=== PATIENT | female | born 1995 | race Caucasian/White ===

== ENCOUNTER 2016-04-17 18:30 | Emergency (ER) | payer OTHER ==
[2016-04-17 18:43] VITALS: TEMP 98.8
--- NOTE | 2016-04-17 19:29 | EDPHY ---
H & P Stated Complaint: hit head 6 days ago. Having blurry vision, headaches, nausea Time Seen by Provider: 04/17/16 19:28 HPI/ROS: CHIEF COMPLAINT: Nausea, remote history of head injury HISTORY OF PRESENT ILLNESS: The patient presents to the ED with complaints of nausea and a slight headache. The patient did have minor head trauma approximately 6 days ago. She reportedly was struck with a plastic plate while at work. The patient did feel her symptoms were improving but she had recurrence of her headache and some vomiting today. The patient denies any focal numbness or weakness. She does complain of very mild visual changes. Patient reports to me she has had a history of concussion times 10 in the past. Additionally she had workup of a headache earlier this year with a negative CT and MRI. The patient has been using ibuprofen for her symptoms. She denies additional traumatic complaints. REVIEW OF SYSTEMS: A comprehensive 10 point review of systems is otherwise negative aside from elements mentioned in the history of present illness. 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 - Social History Smoking Status: Never smoked - Physical Exam Exam: General Appearance: Alert, no distress Head: Atraumatic Eyes: Pupils equal, round, reactive ENT, Mouth: No hemotympanum, no oral trauma Neck: Nontender, trachea midline Respiratory: No chest wall tender, subcutaneous air, lungs clear bilaterally Cardiovascular: Regular rate and rhythm Abdomen: Abdomen is soft and nontender, pelvis stable Skin: No lacerations, No abrasion Back: No midline T/L/S pain Extremities: Nontender, full range of motion Neurological: A&Ox3, normal motor function, normal sensory exam Constitutional: Initial Vital Signs Temperature (C) 37.1 C 04/17/16 18:39 Heart Rate 86 04/17/16 18:39 Respiratory Rate 16 04/17/16 18:39 Blood Pressure 110/74 04/17/16 18:39 O2 Sat (%) 97 04/17/16 18:39 O2 Delivery Mode Room Air Allergies/Adverse Reactions: No Known Allergies Allergy (Unverified 05/27/13 11:31) Home Medications: Medication Instructions Recorded Vitamin D 06/05/15 Ondansetron Odt [Zofran Odt] 4 mg PO Q4PRN PRN #20 tab 04/17/16 Medical Decision Making ED Course/Re-evaluation: The patient is a GCS is 15, she is neurologic intact. There is no evidence of a skull fracture or scalp hematoma. The patient denies any acute abdominal pain or neck pain. I do not believe that she requires a CT scan of her brain to exclude hemorrhage or fracture. The patient is having symptoms of a mild concussion following with sounds to be mild trauma earlier in the week. The patient will be discharged home with our customary concussion aftercare instructions. She is given a prescription for Zofran for nausea. She is encouraged to continue Tylenol and ibuprofen for pain. She will be referred to our concussion center for follow up care. Departure - Departure Disposition: Home, Routine, Self-Care Clinical Impression: Concussion Condition: Good Instructions: Concussion (ED) Additional Instructions: 1. Zofran as needed for nausea. 2. Tylenol and ibuprofen as needed for pain. 3. Please follow up with Dr. Balbina Blanco, our concussion specialist, for any unimproved symptoms. Referrals: Balbina Blanco MD [Medical Doctor] - As per Instructions
[2016-04-17 19:55] VITALS: BP 115/74; PULSE 75; RESP 18; O2SAT 96
== END 2016-04-17 19:55 | disposition home or self-care (01) ==
DX: S06.0X0A Concussion without loss of consciousness, initial encounter (principal); W22.8XXA Striking against or struck by other objects, initial encounter; Y92.69 Other specified industrial and construction area as the place of occurrence of the external cause; Y99.0 Civilian activity done for income or pay; Y93.89 Activity, other specified

== ENCOUNTER 2016-11-17 10:37 | Emergency (ER) | payer OTHER ==
--- NOTE | 2016-11-17 10:56 | CPEKG ---
Heart Rate: 76 RR Interval: 789 P-R Interval: 160 QRSD Interval: 80 QT Interval: 372 QTC Interval: 419 P [place]: 26 QRS [place]: 69 T Wave [place]: 21 EKG Severity - NORMAL ECG - EKG Impression: SINUS RHYTHM Electronically Signed By: Anabella Rand 17-Nov-2016 14:58:57
--- NOTE | 2016-11-17 11:05 | EDPHY ---
H & P Stated Complaint: Sharp bronchial pain with breathing x several days;no cough, no recent trave Time Seen by Provider: 11/17/16 10:48 HPI/ROS: CHIEF COMPLAINT: midsternal pleuritic pain HISTORY OF PRESENT ILLNESS: 21-year-old female history of pituitary tumor followed at [facility] complaining of 2 days of pleuritic lower midsternal pain, reproducible with palpation in the epigastrium, reproducible with inspiration. No radiation. No cough. No URI symptoms. No trauma. No syncope or near syncope. No nausea or vomiting. No malignancy. No immobilization. No trauma. No leg pain ,cramping or swelling. Patient works as an medical assistant dermatology at [employer], most recently worked out 4 days ago at which point she did not experience exertional chest pain or dyspnea beyond expected dyspnea while working out. PRIMARY CARE PROVIDER: [facility] REVIEW OF SYSTEMS: A ten point review of systems was performed and is negative with the exception of the items mentioned in the HPI PAST MEDICAL & SURGICAL HISTORY: Pituitary tumor SOCIAL HISTORY: Nonsmoker. No drug use. No cocaine use FAMILY HISTORY: No family history of premature coronary artery disease or coagulopathic disorder PHYSICAL EXAM (Prior to examination, patient consented to physical exam, hands were washed and my usual and customary physical exam procedures followed) 1) GENERAL: Well-developed, well-nourished, alert and oriented. Appears to be in no acute distress. 2) HEAD: Normocephalic, atraumatic 3) HEENT: Pupils equal, round, reactive to light bilaterally. Sclera anicteric. 4) NECK: Full range of motion, no meningeal signs. 5) LUNGS: Clear auscultation bilaterally, no wheezes, no rhonchi, no retractions. Tender to palpation lower sternum xiphoid process region 6) HEART: Regular rate and rhythm, no murmur, no heave, no gallop. 7) ABDOMEN: No guarding, tender to palpation cephalad portion of epigastrium negative McBurney's, negative Barclay's, negative Rovsing's, negative peritoneal sign, 8) MUSCULOSKELETAL: Moving all extremities, no focal areas of tenderness, no obvious trauma. No peripheral edema or discoloration. 9) BACK: No CVA tenderness. 10) SKIN: No rash, no petechiae. No rash no vesicles 11) Psychiatric: Patient is oriented X 3, there is no agitation. DIFFERENTIAL DIAGNOSIS: In no particular order, including but not limited to myocardial ischemia, pulmonary embolus, chest wall pain, pleural inflammation and pulmonary infectious causes. 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 pituitary tumor. insulin resistance - Social History Smoking Status: Never smoked Constitutional: Initial Vital Signs Temperature (C) 36.7 C 11/17/16 10:38 Heart Rate 75 11/17/16 10:38 Respiratory Rate 16 11/17/16 10:38 Blood Pressure 122/73 H 11/17/16 10:38 O2 Sat (%) 99 11/17/16 10:38 O2 Delivery Mode Room Air Allergies/Adverse Reactions: No Known Allergies Allergy (Verified 11/17/16 10:38) Home Medications: Medication Instructions Recorded Cabergoline [Dostinex (*)] 0.5 mg PO 11/17/16 metFORMIN HCL [Glucophage 500 mg 500 mg PO 11/17/16 (*)] Medical Decision Making - Diagnostics Imaging Results: Imaging Impressions Chest X-Ray 11/17/16 11:03 Impression: Poor inspiration. Otherwise negative. Images reviewed myself ED Course/Re-evaluation: 11:03 a.m.: Patient complaining of pleuritic chest pain as well as tenderness to palpation epigastrium. Patient has a moderate risk Wells score. . Will obtain D-dimer, other diagnostic studies and re-evaluated. 1:04 p.m.: Patient was re-evaluated with serial examinations. Discussed her EKG, chest x-ray, normal D-dimer which I think adequately excludes pulmonary embolus in this patient. She is also tender to palpation epigastrium with normal lipase, negative Barclay signed. I do not think that further imaging currently indicated. I discussed case with secondary supervising physician Dr. Rand in the ER. Plan will be discharge. Recommend ibuprofen for discomfort and follow up with primary care provider. - Data Points Laboratory Results: Laboratory Results 11/17/16 11:25 11/17/16 11:25 11/17/16 11/17/16 11/17/16 11:25 11:25 11:25 WBC RBC Hgb Hct MCV MCH MCHC RDW Plt Count MPV Neut % (Auto) Lymph % (Auto) [place] % (Auto) Eos % (Auto) Baso % (Auto) Nucleat RBC Rel Count Absolute Neuts (auto) Absolute Lymphs (auto) Absolute Monos (auto) Absolute Eos (auto) Absolute Basos (auto) Absolute Nucleated RBC Immature Gran % Immature Gran # D-Dimer < 0.27 ug/mLFEU ug/mLFEU (0.00-0.50) Sodium 139 mEq/L mEq/L (134-144) Potassium 3.9 mEq/L mEq/L (3.5-5.2) Chloride 102 mEq/L mEq/L (97-110) Carbon Dioxide 25 mEq/l mEq/l (22-31) Anion Gap 12 mEq/L mEq/L (8-16) BUN 9 mg/dL mg/dL (7-23) Creatinine 0.8 mg/dL mg/dL (0.6-1.0) Estimated GFR > 60 Glucose 112 mg/dL H mg/dL (70-100) Calcium 9.7 mg/dL mg/dL (8.5-10.4) Total Bilirubin 0.7 mg/dL mg/dL (0.1-1.4) Conjugated Bilirubin 0.2 mg/dL mg/dL (0.0-0.5) Unconjugated Bilirubin 0.5 mg/dL mg/dL (0.0-1.1) AST 30 IU/L IU/L (14-46) ALT 36 IU/L IU/L (9-52) Alkaline Phosphatase 42 IU/L IU/L (38-126) Total Protein 6.9 g/dL g/dL (6.3-8.2) Albumin 4.0 g/dL g/dL (3.5-5.0) Lipase 61.0 IU/L IU/L (23-300) Beta HCG, Qual NEGATIVE 11/17/16 11:25 WBC 8.03 10^3/uL 10^3/uL (3.80-9.50) RBC 5.27 10^6/uL 10^6/uL (4.18-5.33) Hgb 14.7 g/dL g/dL (12.6-16.3) Hct 44.9 % % (38.0-47.0) MCV 85.2 fL fL (81.5-99.8) MCH 27.9 pg pg (27.9-34.1) MCHC 32.7 g/dL g/dL (32.4-36.7) RDW 13.1 % % (11.5-15.2) Plt Count 296 10^3/uL 10^3/uL (150-400) MPV 10.1 fL fL (8.7-11.7) Neut % (Auto) 59.4 % % (39.3-74.2) Lymph % (Auto) 32.8 % % (15.0-45.0) Weston % (Auto) 5.2 % % (4.5-13.0) Eos % (Auto) 2.1 % % (0.6-7.6) Baso % (Auto) 0.4 % % (0.3-1.7) Nucleat RBC Rel Count 0.0 % % (0.0-0.2) Absolute Neuts (auto) 4.77 10^3/uL 10^3/uL (1.70-6.50) Absolute Lymphs (auto) 2.63 10^3/uL 10^3/uL (1.00-3.00) Absolute Monos (auto) 0.42 10^3/uL 10^3/uL (0.30-0.80) Absolute Eos (auto) 0.17 10^3/uL 10^3/uL (0.03-0.40) Absolute Basos (auto) 0.03 10^3/uL 10^3/uL (0.02-0.10) Absolute Nucleated RBC 0.00 10^3/uL 10^3/uL (0-0.01) Immature Gran % 0.1 % % (0.0-1.1) Immature Gran # 0.01 10^3/uL 10^3/uL (0.00-0.10) D-Dimer Sodium Potassium Chloride Carbon Dioxide Anion Gap BUN Creatinine Estimated GFR Glucose Calcium Total Bilirubin Conjugated Bilirubin Unconjugated Bilirubin AST ALT Alkaline Phosphatase Total Protein Albumin Lipase Beta HCG, Qual Medications Given: Discontinued Medications Ibuprofen (Motrin) 800 mg PO EDNOW ONE Stop: 11/17/16 12:33 Last Admin: 11/17/16 12:35 Dose: 800 mg Departure - Departure Disposition: Home, Routine, Self-Care Clinical Impression: Pleurisy Condition: Good Instructions: Pleurisy (ED) Additional Instructions: Return to the emergency department immediately if you develop new or worsening symptoms, if you develop back pain, dizziness or any other symptoms that concern you. Referrals: Follow-up, with your primary care provider in 2 days [Other] - As per Instructions
[2016-11-17 11:34] LABS: % IMMATURE GRANULYOCYTES 0.1 % (0.0-1.1); ABSOLUTE IMMATURE GRANULOCYTES 0.01 10^3/uL (0.00-0.10); ADD DIFF? NO; ADD MORPH? NO; ADD SCAN? NO; ATYPICAL LYMPHOCYTE FLAG 0 (0-99); FRAGMENT RBC FLAG 0 (0-99); HEMATOCRIT 44.9 % (38.0-47.0); HEMOGLOBIN 14.7 g/dL (12.6-16.3); LEFT SHIFT FLG 0 (0-99); LIPEMIA HEMOLYSIS FLAG 80 (0-99); MEAN CELL HEMOGLOBIN 27.9 pg (27.9-34.1); MEAN CELL HEMOGLOBIN CONCENTR. 32.7 g/dL (32.4-36.7); MEAN CELL VOLUME 85.2 fL (81.5-99.8); MEAN PLATELET VOLUME 10.1 fL (8.7-11.7); PLATELET CLUMPS FLAG 10 (0-99); PLATELET COUNT 296 10^3/uL (150-400); RED BLOOD CELL COUNT 5.27 10^6/uL (4.18-5.33); RED CELL DISTRIBUTION WIDTH 13.1 % (11.5-15.2)
[2016-11-17 11:59] LABS: ALANINE AMINOTRANSFERASE 36 IU/L (9-52); ALKALINE PHOSPHATASE 42 IU/L (38-126); ASPARTATE AMINOTRANSFERASE 30 IU/L (14-46); BILIRUBIN,TOTAL 0.7 mg/dL (0.1-1.4); BILIRUBIN-CONJUGATED 0.2 mg/dL (0.0-0.5); BILIRUBIN-UNCONJUGATED 0.5 mg/dL (0.0-1.1); CALCIUM 9.7 mg/dL (8.5-10.4); CARBON DIOXIDE 25 mEq/l (22-31); CHLORIDE 102 mEq/L (97-110); CREATININE 0.8 mg/dL (0.6-1.0); GLOMERULAR FILTRATION RATE > 60; GLUCOSE 112 mg/dL (70-100); SODIUM 139 mEq/L (134-144); TOTAL PROTEIN 6.9 g/dL (6.3-8.2)
[2016-11-17 12:11] LABS: ANION GAP 12 mEq/L (8-16); POTASSIUM 3.9 mEq/L (3.5-5.2)
[2016-11-17 12:23] VITALS: O2SAT 95
[2016-11-17] MEDS: IBUPROFEN 200 MG TAB PO ONE (12:35)
[2016-11-17 13:33] VITALS: BP 102/80; PULSE 88; RESP 18; TEMP 98.6
== END 2016-11-17 13:33 | disposition home or self-care (01) ==
DX: R09.1 Pleurisy (principal)

== ENCOUNTER 2016-11-18 07:35 | Emergency (ER) | payer OTHER ==
--- NOTE | 2016-11-18 07:47 | EDPHY ---
H & P Stated Complaint: Here yesterday for another c/o. Now states "I vomited blood" x 1 this am HPI/ROS: CHIEF COMPLAINT: Chest pain, abdominal pain, vomited blood HISTORY OF PRESENT ILLNESS: This patient is a 21 year old female arriving with her roommate complaining of worsening midepigastric abdominal pain and one episode of coffee-ground emesis about one hour prior to arrival. She was seen in this emergency department yesterday for lower midsternal pleuritic pain, and had a negative workup for pulmonary or cardiac causes at that time. Since then, her pain has gotten much worse. It is localized along the bottom of her ribcage bilaterally, primarily in middle, and more pronounced on the right than the left. She vomited one hour ago, and describes the emesis as brownish-black, "like coffee grounds". Her last oral intake was yesterday evening. She did receive 800mg Ibuprofen in the emergency department yesterday, and took an additional dose at home around 18: 00. She endorses an evening of more alcohol use than usual on Thursday. She denies fever, diarrhea, dysuria, or other associated symptoms. Of note, she has history of pituitary tumor diagnosed in May of this year. She is followed by [facility] for this. She takes a prolactin suppressant, and feels her symptoms are well controlled. She has not noted any vision changes or other changes since diagnosis. She states she is otherwise healthy. REVIEW OF SYSTEMS: A ten point review of systems was performed and is negative with the exception of the items mentioned in the HPI. - Personal History LMP (Females 10-55): 15-21 Days Ago Current Tetanus Diphtheria and Acellular Pertussis (TDAP): Yes - Medical/Surgical History PMH: 1. Pituitary tumor (Cabergoline) Diagnosed in May, by MRI and hormone levels 2. Insulin resistance (Metformin) 3. Concussions x 10 per patient 4. Left foot arch reconstructive surgery Hx Asthma: No Hx Chronic Respiratory Disease: No Hx Diabetes: No Hx Cardiac Disease: No Hx Renal Disease: No Hx Cirrhosis: No Hx Alcoholism: No Hx HIV/AIDS: No Hx Splenectomy or Spleen Trauma: No - Social History Smoking Status: Never smoked Alcohol Use: Occasionally Additional Social History: Roommate at bedside. 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 Recently graduated from [employer]. Lives in [place]. [facility] No tobacco use. Social alcohol use. - Physical Exam Exam: General Appearance: Alert. Vital signs reviewed. Eyes: Pupils equal and round, no conjunctival injection, no discharge. Anicteric. ENT, Mouth: Mucous membranes are moist, no oropharyngeal erythema or edema. Neck: No lymphadenopathy, supple. Respiratory: Lungs are clear to auscultation; no wheezes, rales, or rhonchi. Cardiovascular: Regular rate and rhythm; no murmur, rub, or gallop. Gastrointestinal: Midepigastric and right upper quadrant tenderness. No guarding. Abdomen is soft, no masses or organomegaly, bowel sounds normal. Skin: Warm and dry, no rashes on exposed skin, normal color. Back: Mild right CVA tenderness. Nontender to palpation over the thoracolumbar spine. Extremities: No lower extremity edema, no calf tenderness or swelling. Neurological: Alert and oriented. Moving all four extremities easily and equally. Psychiatric: Normal affect. Constitutional: Initial Vital Signs Temperature (C) 36.7 C 11/18/16 07:37 Heart Rate 78 11/18/16 07:37 Respiratory Rate 16 11/18/16 07:37 Blood Pressure 111/64 11/18/16 07:37 O2 Sat (%) 95 11/18/16 07:37 O2 Delivery Mode Room Air Allergies/Adverse Reactions: No Known Allergies Allergy (Verified 11/18/16 07:37) Home Medications: Medication Instructions Recorded Cabergoline [Dostinex (*)] 0.5 mg PO 11/17/16 metFORMIN HCL [Glucophage 500 mg 500 mg PO 11/17/16 (*)] Omeprazole [Prilosec 20 mg] 20 mg PO DAILY #14 capsule. 11/18/16 Ondansetron Odt [Zofran Odt 4 mg 4 mg PO Q4 PRN #6 tab 11/18/16 (RX)] Medical Decision Making ED Course/Re-evaluation: 21 year old female presents with worsening abdominal pain and one episode of brownish-black emesis. Physical exam reveals midepigastric and right upper quadrant abdominal tenderness. Plan for IV fluid, 4mg IV Zofran, 20mg IV Pepcid for symptom relief. Plan to repeat labs including CBC, BMP, liver, and lipase. Reviewed yesterday's work-up. Considering: ulcer disease, pancreatitis, cholecystitis among other possibilities. 8:33 Reassessed patient. She is feeling better follow administration of Pepcid and Zofran. Her abdomen is soft; mild midepigastric tenderness persists. 9:50 a.m.: She is feeling better. Abdomen remains soft, minimally tender in the midepigastrium. She has been given a GI cocktail. The plan is to discharge her home with instructions to take Prilosec for couple of weeks and also to try Maalox or Mylanta. She is being given a referral to a local primary care physician. In this situation, I think gastritis is most likely diagnosis. No hemodynamic instability to suggest ongoing blood loss. Labs indicate that gallbladder and pancreas are less likely to be etiology. Differential Diagnosis: Abdominal pain including but not limited to appendicitis, bowel obstruction, cholecystitis, pancreatitis, gastritis/peptic ulcer disease and urinary tract infection. - Data Points Laboratory Results: Laboratory Results 11/18/16 08:00 11/18/16 08:00 Medications Given: Discontinued Medications Al Hydroxide/Mg Hydroxide (Maalox Susp) 30 ml PO ONCE ONE Stop: 11/18/16 09:50 Last Admin: 11/18/16 09:59 Dose: 30 ml Hyoscyamine Sulfate (Levsin, Hyomax-Sl) 0.25 mg PO ONCE ONE Stop: 11/18/16 09:50 Last Admin: 11/18/16 09:59 Dose: 0.25 mg Sodium Chloride (Ns) 1,000 mls @ 0 mls/hr IV EDNOW ONE; Wide Open PRN Reason: Protocol Stop: 11/18/16 07:57 Last Admin: 11/18/16 08:13 Dose: 1,000 mls Famotidine/Sodium Chloride (Pepcid 20 Mg (Premix)) 50 mls @ 200 mls/hr IV EDNOW ONE Stop: 11/18/16 08:10 Last Admin: 11/18/16 08:14 Dose: 50 mls Lidocaine (Lidocaine 2% Viscous) 15 ml PO ONCE ONE Stop: 11/18/16 09:50 Last Admin: 11/18/16 09:59 Dose: 15 ml Ondansetron HCl (Zofran) 4 mg IVP EDNOW ONE Stop: 11/18/16 07:57 Last Admin: 11/18/16 08:10 Dose: 4 mg Departure - Departure Disposition: Home, Routine, Self-Care Clinical Impression: Gastritis Condition: Good Instructions: Gastritis (ED), Diet for Stomach Ulcers and Gastritis (ED) Additional Instructions: 1. Take Zofran as prescribed as needed for nausea relief. 2. Take Prilosec once a day for the next two weeks as directed. 3. You may also buy Mylanta over the counter, which will help with symptom relied. Take as directed on the packaging. 4. Follow up with a primary care provider for continued management of symptoms. We have referred you to a local primary care physician. 5. Return to the Emergency Department for severe abdominal pain, uncontrollable vomiting, diarrhea, or if you develop fever, chills, or other worsening of condition. Referrals: Teto Land MD [Medical Doctor] - As per Instructions Prescriptions: Omeprazole [Prilosec 20 mg] 20 mg PO DAILY #14 capsule. Ondansetron Odt [Zofran Odt 4 mg (RX)] 4 mg PO Q4 PRN #6 tab PRN Reason: nausea Report Scribed for: Sherrie Joy Report Scribed by: Chelsey Bazzi Date of Report: 11/18/16 Time of Report: 08:18 Physician Review and Approval Statement: 11/18/16 07:46 Portions of this note were transcribed by the medical device assembler. I, Dr. Sherrie Joy, personally performed the history, physical exam, and medical decision- making; and confirmed the accuracy of the information in the transcribed note.
[2016-11-18] MEDS ORDERED: FAMOTIDINE 20 MG/NACL 50 ML IV ONE (07:56)
[2016-11-18] MEDS ORDERED: NS 1,000 ML IV ONE (07:56)
[2016-11-18] MEDS ORDERED: ONDANSETRON 4 MG/2 ML VIAL IVP ONE (07:56)
[2016-11-18 08:21] LABS: % IMMATURE GRANULYOCYTES 0.3 % (0.0-1.1); ABSOLUTE IMMATURE GRANULOCYTES 0.03 10^3/uL (0.00-0.10); ADD DIFF? NO; ADD MORPH? NO; ADD SCAN? NO; ATYPICAL LYMPHOCYTE FLAG 10 (0-99); FRAGMENT RBC FLAG 0 (0-99); HEMATOCRIT 41.6 % (38.0-47.0); HEMOGLOBIN 13.7 g/dL (12.6-16.3); LEFT SHIFT FLG 0 (0-99); LIPEMIA HEMOLYSIS FLAG 80 (0-99); MEAN CELL HEMOGLOBIN CONCENTR. 32.9 g/dL (32.4-36.7); MEAN CELL VOLUME 85.1 fL (81.5-99.8); PLATELET CLUMPS FLAG 0 (0-99); PLATELET COUNT 266 10^3/uL (150-400); RED BLOOD CELL COUNT 4.89 10^6/uL (4.18-5.33)
[2016-11-18 08:25] LABS: ALANINE AMINOTRANSFERASE 42 IU/L (9-52); ALBUMIN 3.9 g/dL (3.5-5.0); ALKALINE PHOSPHATASE 48 IU/L (38-126); ANION GAP 12 mEq/L (8-16); ASPARTATE AMINOTRANSFERASE 28 IU/L (14-46); BILIRUBIN,TOTAL 0.7 mg/dL (0.1-1.4); BILIRUBIN-CONJUGATED 0.3 mg/dL (0.0-0.5); BILIRUBIN-UNCONJUGATED 0.4 mg/dL (0.0-1.1); CALCIUM 9.2 mg/dL (8.5-10.4); CARBON DIOXIDE 26 mEq/l (22-31); CHLORIDE 103 mEq/L (97-110); CREATININE 0.7 mg/dL (0.6-1.0); GLOMERULAR FILTRATION RATE > 60; GLUCOSE 102 mg/dL (70-100); POTASSIUM 3.9 mEq/L (3.5-5.2); SODIUM 141 mEq/L (134-144); TOTAL PROTEIN 6.5 g/dL (6.3-8.2)
[2016-11-18] MEDS ORDERED: LIDOCAINE 2% VISCOUS 15 ML UDCUP PO ONE (09:49)
[2016-11-18] MEDS ORDERED: HYOSCYAMINE SULFATE 0.125 MG TAB PO ONE (09:49)
[2016-11-18] MEDS ORDERED: MAG HYDROX/AL HYDROX/SIMETH 30 ML UDCUP PO ONE (09:49)
[2016-11-18 10:07] VITALS: BP 98/56; PULSE 73; RESP 18; TEMP 98.1; O2SAT 98
== END 2016-11-18 10:12 | disposition home or self-care (01) ==
DX: K29.70 Gastritis, unspecified, without bleeding (principal); E86.9 Volume depletion, unspecified
CPT/HCPCS: 96365; J2405

== ENCOUNTER 2017-02-20 09:02 | Emergency (ER) | payer OTHER ==
[2017-02-20 09:07] VITALS: BP 116/72; PULSE 82; RESP 18; TEMP 98.8; O2SAT 97
--- NOTE | 2017-02-20 09:28 | EDPHY ---
H & P Time Seen by Provider: 02/20/17 09:10 HPI/ROS: CHIEF COMPLAINT: right thumb injury HISTORY OF PRESENT ILLNESS: [age]-year-old [id number] female arrives via private vehicle complaining of acute right thumb injury at the proximal phalanx when she accidentally got her thumb closed in a car door last evening. Reproducible pain with range of motion and with palpation. No paresthesia. No break in skin. No nail bed injury or distal phalanx injury. A ten point review of systems was performed and is negative with the exception of the items mentioned in the HPI PHYSICAL EXAM (Prior to examination, patient consented to physical exam, hands were washed and my usual and customary physical exam procedures followed) 1) GENERAL: Well-developed, well-nourished, alert and oriented. Appears to be in no acute distress. 2) HEAD: Normocephalic 3) HEENT: Pupils equal, round, reactive to light bilaterally. 4) LUNGS: Breathing comfortably. 5) MUSCULOSKELETAL: Tender to palpation right thumb proximal phalanx with no malrotation, no break in skin. Flexor extensor function Soft compartments. Normal coloration. No signs of infection negative kanavel 6) SKIN: intact. soft compartments 7) VASCULAR: pulses and cap refill present are brisk 8) NEUROLOGIC: Radial, ulnar, median nerve function intact with no deficits appreciated on exam DIFFERENTIAL DIAGNOSIS: in no particular order including but not limited to fracture, sprain, compartment syndrome * Procedure: Splint A Velcro thumb spica splint was applied by ER case technician. After application of the splint I returned and re-examined the patient. The splint was adequately immobilizing the joint and distal to the splint the patient's circulation and sensation were intact. Patient shows no signs of compartment syndrome. Was given orthopedic precautions. Smoking Status: Never smoked Constitutional: Initial Vital Signs Temperature (C) 37.1 C 02/20/17 09:05 Heart Rate 82 02/20/17 09:05 Respiratory Rate 18 02/20/17 09:05 Blood Pressure 116/72 02/20/17 09:05 O2 Sat (%) 97 02/20/17 09:05 O2 Delivery Mode Room Air Allergies/Adverse Reactions: No Known Allergies Allergy (Verified 02/20/17 09:03) Home Medications: Medication Instructions Recorded Cabergoline [Dostinex (*)] 0.5 mg PO 11/17/16 metFORMIN HCL [Glucophage 500 mg 500 mg PO 11/17/16 (*)] MDM/Departure - [facility] ED Course/Re-evaluation: No definitive fracture on x-ray. Cannot rule out ulnar collateral ligament injury. Placed in splint, recommended hand surgery follow-up. Usual and customary orthopedic precautions instructions provided.Care of patient under supervision of secondary supervising physician Dr Badillo . - Depart Disposition: Home, Routine, Self-Care Clinical Impression: Injury of right thumb Qualifiers: Encounter type: initial encounter Qualified Code(s): S69.91XA - Unspecified injury of right wrist, hand and finger(s), initial encounter Condition: Good Instructions: Finger Sprain (ED) Additional Instructions: Return to the ER immediately if you experience discoloration, have worsening pain, numbness, tingling, or any other symptoms that concern you. If you received x-rays in the emergency department today, be advised, that ligamentous , tendon, muscular, and other non-bony injury cannot be fully ruled out. Try to keep your affected extremity elevated above the level of your chest, and keep cold packs on the affected area, for the next 48 hours. Referrals: Shaye Moreno MD [Medical Doctor] - 5-7 days, call for appt.
== END 2017-02-20 09:37 | disposition home or self-care (01) ==
DX: S69.91XA Unspecified injury of right wrist, hand and finger(s), initial encounter (principal); W23.0XXA Caught, crushed, jammed, or pinched between moving objects, initial encounter
CPT/HCPCS: L3807